=== PATIENT | male | born 1990 ===

== ENCOUNTER 2020-12-23 08:07 | Outpatient (CLI) | payer OTHER, SELFPAY | END 2020-12-23 08:08 | LOC: ANHCOVIDVC 08:07 | PROVIDERS: PCP Family Medicine | DX: Z23 Encounter for immunization (principal) | CPT/HCPCS: 0001A; 91300 ==

== ENCOUNTER 2021-01-12 08:33 | Outpatient (CLI) | payer OTHER, SELFPAY | END 2021-01-12 08:34 | disposition home or self-care (01) | LOC: ANHCOVIDVC 08:33 | PROVIDERS: PCP Family Medicine | DX: Z23 Encounter for immunization (principal) | CPT/HCPCS: 0002A; 91300 ==